=== PATIENT | male | born 1950 | race Caucasian/White ===

== ENCOUNTER → 2020-10-11 13:59 | Outpatient (BNVA) | payer MEDICARE, OTHER, SELFPAY | PROVIDERS: PCP Internal Medicine; Referring Provider Internal Medicine; Visit Provider Orthopaedic Surgery | DX: M70.62 Trochanteric bursitis, left hip (principal); M76.32 Iliotibial band syndrome, left leg; Z96.653 Presence of artificial knee joint, bilateral | CPT/HCPCS: 20610; 99202; J1100 ==

== ENCOUNTER → 2021-07-04 13:04 | Outpatient (BNVA) | payer MEDICARE, OTHER, SELFPAY | PROVIDERS: PCP Internal Medicine; Visit Provider Orthopaedic Surgery | DX: M70.62 Trochanteric bursitis, left hip (principal); M76.32 Iliotibial band syndrome, left leg | CPT/HCPCS: 99212; J1100 ==

== ENCOUNTER 2021-08-19 15:00 | Outpatient (RCR) | payer MEDICARE, OTHER, SELFPAY ==
--- NOTE | 2021-07-22 15:48 | MHC.PT.EP ---
[facility] [place] Office [place] Office [place] Office [address] Ronni Kraft [address] [phone] F: [phone] F: [phone] F: [phone] F: [phone] Physical Therapy Plan of Care Date of Evaluation: Date of Surgery: N/A Diagnosis: trochanteric bursitis, left hip iliotibial band syndrome Assessment: pt presents to physical therapy with pain, decreased range of motion, decreased strength, impaired functional mobility, impaired postural awareness, and gait deviations. pt is a good candidate for skilled PT due to age, potential remediation of impairments, typical disease/condition progression and prognosis, comorbidities, and motivation. pt would benefit from tailored strengthening and stretching exercise program, functional training, gait training, postural re-training, neuromuscular re-education, modalities as needed for pain, equipment safety demonstration. Frequency and Duration: The patient will be seen 1x/wk for 4 wks Short Term Goals: pt will be I w/ HEP to promote self-management of condition. pt will improve L hip IR by 1 MMT grade to remediate gait impairments on even ground. Furnace Roaster Goals: pt will report a statistically significant improvement in self-reported outcome measure, LEFI, to promote return to PLOF. pt will report <2/10 L hip pain w/ ambulation of >2500' to promote pain-free return to community ambulation. Treatment Plan: Modalities to reduce pain, spasms and effusion. Manual therapy to restore motion and function. Therapeutic exercise to improve strength and flexibility. Neuromuscular re-education for posture and balance. Therapeutic activities to return to functional activities of daily living. Electronically signed by: Darlene Seay PT, DPT Please sign and return to therapist. Thank you for your referral.
--- NOTE | 2021-09-06 12:00 | MHC.PT.DC ---
[facility] [place] Office [place] Office [place] Office [address] Ronni Kraft 140 [facility] [phone] F: [phone] F: [phone] F: [phone] F: [phone] Physical Therapy Discharge Report Diagnosis: trochanteric bursitis, left hip iliotibial band syndrome Date of Surgery: N/A Date of Evaluation: 07/22/21 Date of Discharge: 09/06/21 Treatments to Date: 4 Cancellations to Date: 1 No Shows to Date: 0 Discharge Status: Independent with HEP Visit Non-compliance Discharge Summary: The patient was referred for his hip; however, he was not interested in any intervention for his hip at this time. We reviewed his home exercise program from a previous bout of physical therapy he received at the end 2019 for the same problem. He was introduced to some lower chain exercises to reduce his genu valgus and over-pronatory tendencies. He would often show up late and would leave early. He is discharged from this physical therapy plan of care. Electronically signed by: Darlene Seay PT, DPT Please sign and return to therapist. Thank you for your referral.
== END 2021-09-06 12:01 | disposition home or self-care (01) ==
LOC: HO.PT 15:00
PROVIDERS: PCP Internal Medicine; Visit Provider Orthopaedic Surgery
DX: M70.62 Trochanteric bursitis, left hip (principal); M76.32 Iliotibial band syndrome, left leg
CPT/HCPCS: 97110; 97161

== ENCOUNTER 2022-03-31 11:58 | Outpatient (REF) | payer MEDICARE, OTHER, SELFPAY ==
--- NOTE | ~2022-03-31 | XR_ITS ---
EXAMINATION: XR PELVIS CLINICAL INFORMATION: Hip pain COMPARISON: None TECHNIQUE: AP view of the pelvis. FINDINGS: There is mild reduction in bilateral hip joint space without bony erosive changes. No visible acute fracture, dislocation or subluxation seen. SI joints are symmetric and normal. The pelvic bones are normal. XR/XR pelvis 1-2V IMPRESSION: Mild reduction in bilateral hip joint space likely early DJD. No acute fracture or dislocation seen.
== END 2022-03-31 11:59 | disposition home or self-care (01) ==
LOC: HO.HOSX 11:58
PROVIDERS: PCP Internal Medicine; Visit Provider Orthopaedic Surgery
DX: M70.62 Trochanteric bursitis, left hip (principal); R10.32 Left lower quadrant pain
CPT/HCPCS: 20610; 72170; 99212; J1100

== ENCOUNTER → 2022-04-15 09:51 | Outpatient (BNVA) | payer MEDICARE, OTHER, SELFPAY | PROVIDERS: PCP Internal Medicine; Visit Provider Surgery | DX: R10.32 Left lower quadrant pain (principal); R26.89 Other abnormalities of gait and mobility; R12 Heartburn; I10 Essential (primary) hypertension; M19.079 Primary osteoarthritis, unspecified ankle and foot; M70.62 Trochanteric bursitis, left hip | CPT/HCPCS: 99202 ==

== ENCOUNTER 2022-06-16 13:36 | Outpatient (REF) | payer MEDICARE, OTHER, SELFPAY ==
--- NOTE | ~2022-06-16 | CT_ITS ---
EXAMINATION: CT ABDOMEN AND PELVIS WITHOUT CONTRAST CLINICAL INFORMATION: Left lower quadrant pain COMPARISON: None TECHNIQUE: Multidetector volumetric imaging was performed from the superior aspect of the liver through the pubic symphysis. Sagittal and coronal reformatted images were obtained on the technologist's workstation. This CT examination was performed using dose optimization techniques as appropriate, variously including the following: *Automated exposure control *Adjustment of mA and/or kV according to patient size (this includes techniques or standardized protocols for targeted exams where dose is matched to indication/reason for exam; i.e. extremities or head) *Use of iterative reconstruction technique DLP: 486 mGy-cm FINDINGS: LUNG BASES: The visualized lung bases are unremarkable. LIVER, GALLBLADDER, AND BILIARY TREE: The liver is normal in size, shape, and attenuation. No focal hepatic lesion or biliary ductal dilatation is present. The gallbladder has been surgically removed. PANCREAS: Unremarkable. SPLEEN: Unremarkable. ADRENAL GLANDS: Unremarkable. KIDNEYS AND URETERS: The kidneys are normal in size, shape, and attenuation. No hydronephrosis, hydroureter, or calculi seen. No perinephric stranding. There is a 2.1 cm peripelvic cyst lower pole right kidney BLADDER: Unremarkable. GASTROINTESTINAL TRACT: There is diffuse colonic diverticulosis with mild mural thickening but no pericolic fat stranding seen. Oral contrast opacified small bowel loops are normal caliber. The appendix is normal caliber. The stomach is nondistended and appears unremarkable. ABDOMINAL WALL: There is a 2.4 cm supraumbilical midline anterior abdominal wall hernia containing fat. LYMPH NODES: Normal. VASCULAR: Unremarkable. PELVIC VISCERA: There is no free air or free fluid. The prostate gland is normal size. Small shotty lymph nodes seen in the inguinal region. OSSEOUS STRUCTURES: There are degenerative disc changes with vacuum disc phenomena and spondylosis throughout lumbar spine. There is grade 1 anterolisthesis L4-L5 and grade 1 retrolisthesis and L3 over L4 and L2 over L3 vertebra. No aggressive lytic or sclerotic process seen. There is bilateral L4-L5 and left L3-L4 facet joint arthropathy and hypertrophy. CT/CT abdomen pelvis wo con IMPRESSION: Colonic diverticulosis most prominent in the sigmoid colon with mild mural thickening. However there is no pericolic fat stranding to suspect any diverticulitis. Supraumbilical midline abdominal wall hernia containing fat. Previous cholecystectomy. Right parapelvic cyst. Fleischner guidelines were followed.
[2022-06-16] MEDS: Barium Sulfate Oral (Mocha) 450 ML ORAL.SUSP 900 ML PO (16:43)
== END 2022-06-16 13:37 | disposition home or self-care (01) ==
LOC: HO.CT 13:36
PROVIDERS: PCP Internal Medicine; Visit Provider Surgery
DX: M70.62 Trochanteric bursitis, left hip (principal); R10.32 Left lower quadrant pain
CPT/HCPCS: 74176

== ENCOUNTER → 2022-06-19 13:35 | Outpatient (BNVA) | payer MEDICARE, OTHER, SELFPAY | PROVIDERS: PCP Internal Medicine; Visit Provider Surgery | DX: R10.32 Left lower quadrant pain (principal); M70.62 Trochanteric bursitis, left hip; M76.32 Iliotibial band syndrome, left leg; I10 Essential (primary) hypertension; Z90.49 Acquired absence of other specified parts of digestive tract | CPT/HCPCS: 99212 ==

== ENCOUNTER → 2022-07-14 12:05 | Outpatient (BNVA) | payer MEDICARE, OTHER, SELFPAY | PROVIDERS: PCP Internal Medicine; Visit Provider Orthopaedic Surgery | DX: M70.62 Trochanteric bursitis, left hip (principal); M76.32 Iliotibial band syndrome, left leg; R26.9 Unspecified abnormalities of gait and mobility | CPT/HCPCS: 99212; J1100 ==

== ENCOUNTER → 2023-04-16 11:28 | Outpatient (BNVA) | payer MEDICARE, OTHER, SELFPAY | PROVIDERS: PCP Internal Medicine; Visit Provider Orthopaedic Surgery | DX: M70.62 Trochanteric bursitis, left hip (principal); R26.9 Unspecified abnormalities of gait and mobility; Z96.652 Presence of left artificial knee joint | CPT/HCPCS: 20610; 99212; J1100 ==

== ENCOUNTER → 2023-05-25 12:12 | Outpatient (BNVA) | payer MEDICARE, OTHER, SELFPAY | PROVIDERS: PCP Internal Medicine; Visit Provider Orthopaedic Surgery | DX: M70.62 Trochanteric bursitis, left hip (principal); R26.9 Unspecified abnormalities of gait and mobility | CPT/HCPCS: 20610; 99212; J1100 ==

== ENCOUNTER 2024-04-11 10:28 | Outpatient (AMB) | payer MEDICARE, OTHER, SELFPAY ==
--- NOTE | 2024-04-11 10:40 | A.OFFVIS_ITS ---
Intake Visit Reasons: OV-LT hip injection-last injection 05/25/23 Intake Note: Porfirio is a 73 year old male who presents today for a follow up of his left hip greater trochanteric bursitis, last injected 05/25/23. Patient reports that the last injection was helpful and he would like to repeat injection today. He also complains of right shoulder pain that onset about two weeks ago with no injury. Limited and painful ROM. Allergies No Known Allergies [No Known Allergies*] Allergy (Verified 05/25/23 12:15) Seasonale Allergy (Unknown, Uncoded 04/16/23 12:13) unknown HPI HPI OV-LT hip injection-last injection 05/25/23: Details: Porfirio is a 73 year old male who presents today for a follow up of his left hip greater trochanteric bursitis, last injected 05/25/23. Patient reports that the last injection was helpful and he would like to repeat injection today. He also complains of right shoulder pain that onset about two weeks ago with no injury. Limited and painful ROM. [facility] Medical History Greater trochanteric bursitis of left hip Heart burn High cholesterol Hypertension Iliotibial band syndrome affecting left lower leg Primary localized osteoarthritis of left knee Surgical History H/O medial meniscus repair of left knee History of total knee arthroplasty Social History Current occupational status: employed and retired Current occupation: - Right Handed Physical Exam Const General: no acute distress and alert Orientation/consciousness: patient oriented x3 Neuro General: patient oriented x3 Extrem Other: Left hip: TTP greater trochanter Psych Appearance: grossly normal Affect: normal affect Attitude: cooperative Office Procedures Joint Injection/Drain Joint Injection/Drain Details: Injected 1 mL of Decadron and 3 mL 1% lidocaine and 3 mL of 0.25% Marcaine. Site was prepped using aseptic technique. Patient tolerated the procedure well. 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 Her has mild hip OA. I injected his left GT today, which he tolerated well. He can follow up prn (2) Gait disturbance: Code(s): R26.9 - Unspecified abnormalities of gait and mobility Plan Coding Level of Care Code Est Pt Level 3 (81610) Diagnoses Greater trochanteric bursitis of left hip M70.62 Gait disturbance R26.9 CPT Codes Coding - 06728 Large joint: 30110 - Large joint ([id number])
== END 2024-04-11 11:08 | disposition home or self-care (01) ==
PROVIDERS: PCP Internal Medicine; Visit Provider Orthopaedic Surgery
DX: M70.62 Trochanteric bursitis, left hip (principal); R26.9 Unspecified abnormalities of gait and mobility
CPT/HCPCS: 20610; 99213

== ENCOUNTER → 2024-04-11 10:28 | Outpatient (BNVA) | payer MEDICARE, OTHER, SELFPAY | PROVIDERS: PCP Internal Medicine; Visit Provider Orthopaedic Surgery | DX: M70.62 Trochanteric bursitis, left hip (principal); R26.9 Unspecified abnormalities of gait and mobility | CPT/HCPCS: 20610; 99212; J0665; J1100 ==

== ENCOUNTER 2024-05-13 07:40 | Outpatient (REF) | payer MEDICARE, OTHER, SELFPAY ==
--- NOTE | ~2024-05-13 | XR_ITS ---
EXAMINATION: XR SHOULDER, RIGHT CLINICAL INFORMATION: Pain in the shoulder COMPARISON: None available. TECHNIQUE: 3 views of the right shoulder. FINDINGS: Glenohumeral joint: Severe joint space narrowing with [id number] appearance. Marginal osteophytes present. Mild arthrosis of the acromioclavicular joint. Surrounding bone and soft tissues unremarkable. XR/XR shoulder RT min 2V IMPRESSION: Severe osteoarthritis of the glenohumeral joint. Mild arthrosis of the acromioclavicular joint.
== END 2024-05-13 07:41 | disposition home or self-care (01) ==
LOC: HO.HOSX 07:40
PROVIDERS: Visit Provider Orthopaedic Surgery
DX: M19.011 Primary osteoarthritis, right shoulder (principal)
CPT/HCPCS: 73030; 99212

== ENCOUNTER 2024-05-13 10:12 | Outpatient (AMB) | payer MEDICARE, OTHER, SELFPAY ==
--- NOTE | 2024-05-13 10:33 | MHC.OFFVIS ---
Intake Visit Reasons: Newprob-right shoulder pain Intake Note: Porfirio is a 74 year old male who presents today for a new problem visit with complaints of right shoulder pain. Patient reports that his right shoulder has been many years now, he reports injury many years ago. No hx of treatment. He feels pain with lateral reaching and above the head. He declines numbness and tingling. Allergies No Known Allergies [No Known Allergies*] Allergy (Verified 05/25/23 12:15) Seasonale Allergy (Unknown, Uncoded 04/16/23 12:13) unknown HPI HPI Newprob-right shoulder pain: Details: Porfirio is a 74 year old male who presents today for a new problem visit with complaints of right shoulder pain. Patient reports that his right shoulder has been many years now, he reports injury many years ago. No hx of treatment. He feels pain with lateral reaching and above the head. He declines numbness and tingling. PFSH Medical History Greater trochanteric bursitis of left hip Heart burn High cholesterol Hypertension Iliotibial band syndrome affecting left lower leg Primary localized osteoarthritis of left knee Surgical History H/O medial meniscus repair of left knee History of total knee arthroplasty Social History Current occupational status: employed and retired Current occupation: - Right Handed Physical Exam Const General: cooperative, healthy appearing, no acute distress and well groomed Orientation/consciousness: oriented to person and oriented to place HEENT Head: Yes normal to inspection, Yes normocephalic and Yes atraumatic Eyes General: appearance normal, both eyes and all related structures Alignment and Position: alignment normal Conjunctivae: conjunctivae normal EOM: EOMs intact bilaterally Neck Neck: Yes normal visual inspection and Yes trachea midline Resp Other: No rerpiratory distress Effort & Inspection: normal respiratory effort and able to speak in complete sentences GI Other: No abdominal distension Back/Spine/Pelvis Cervical Spine: normal cervical lordosis and cervical ROM normal Skin General skin exam: no rashes or lesions noted Neuro General: oriented to person, oriented to place and gait normal Extrem Other: Shoulder: 25/90/120/S1 Negative EC Negative H/N Results Reviewed Results Reviewed: I personally reviewed relevant radiographs. Moderate to severe right shoudler OA Assessment & Plan Assessment & Plan (1) Primary osteoarthritis, right shoulder: Code(s): M19.011 - Primary osteoarthritis, right shoulder Category: Medical Plan: Ran has right shoulder osteoarthritis. We discussed treatment options. He has not severely limited at this time and I recommend avoidance of exacerbating activity and I wrote him a prescription for physical therapy. He can see me back as needed. Plan I will send an order for physical therapy Orders: Orders XR shoulder RT min 2V 05/13/24 M25.519 - Pain in unspecified shoulder PT Evaluation and Treatment Today M75.51 - Bursitis of right shoulder Coding Level of Care Code Est Pt Level 3 (87822) Diagnoses Primary osteoarthritis, right shoulder M19.011
== END 2024-05-13 11:04 | disposition home or self-care (01) ==
PROVIDERS: PCP Internal Medicine; Visit Provider Orthopaedic Surgery
DX: M19.011 Primary osteoarthritis, right shoulder (principal)
CPT/HCPCS: 99213

== ENCOUNTER 2024-08-11 08:23 | Outpatient (REF) | payer MEDICARE, OTHER, SELFPAY ==
--- NOTE | ~2024-08-11 | XR_ITS ---
EXAMINATION: XR KNEE, BILATERAL CLINICAL INFORMATION: M25.562 - Pain in left knee COMPARISON: Radiographs 11/11/2019 TECHNIQUE: AP standing view of both knees. Lateral and sunrise views of the left knee FINDINGS: There is a minimally displaced fracture involving the medial aspect of the medial femoral condyle of the left knee. No joint effusion. The total knee arthroplasty components are unremarkable. Normal appearance of the right knee total arthroplasty on the AP view. XR/XR knee RT 1V IMPRESSION: There is a minimally displaced fracture involving the medial aspect of the medial femoral condyle of the left knee. Electronically signed by: Raymond Gonzalez MD 08/17/2024 11:03 AM EDT
--- NOTE | ~2024-08-11 | XR_ITS ---
EXAMINATION: XR KNEE, BILATERAL CLINICAL INFORMATION: M25.562 - Pain in left knee COMPARISON: Radiographs 11/11/2019 TECHNIQUE: AP standing view of both knees. Lateral and sunrise views of the left knee FINDINGS: There is a minimally displaced fracture involving the medial aspect of the medial femoral condyle of the left knee. No joint effusion. The total knee arthroplasty components are unremarkable. Normal appearance of the right knee total arthroplasty on the AP view. XR/XR knee LT 3V IMPRESSION: There is a minimally displaced fracture involving the medial aspect of the medial femoral condyle of the left knee. Electronically signed by: Raymond Gonzalez MD 08/17/2024 11:03 AM EDT
== END 2024-08-11 08:24 | disposition home or self-care (01) ==
LOC: HO.XRAY 08:23
PROVIDERS: PCP Internal Medicine; Visit Provider Orthopaedic Surgery
DX: M96.662 Fracture of femur following insertion of orthopedic implant, joint prosthesis, or bone plate, left leg (principal); M25.561 Pain in right knee
CPT/HCPCS: 73560; 73562; 99212

== ENCOUNTER 2024-08-11 08:23 | Outpatient (AMB) | payer MEDICARE, OTHER, SELFPAY ==
--- NOTE | 2024-08-11 08:25 | MHC.OFFVIS ---
Intake Visit Reasons: New Prob- RT TKA 09/28/2019 s/p fall Intake Note: Ran is a 74 year old male who presents today for a new problem visit with complaints of right knee pain s/p Fall on 08/06/24, He reports that a group of dogs had knocked him over, he doesnt remember how exactly he fell. Hx of Right TKA 09/28/2019. He was seen at [facility] where he was told he has a fracture. Patient reports that he has mild pain with medial and lateral movements. He has been wearing his knee immobilizer at all times. Allergies No Known Allergies [No Known Allergies*] Allergy (Verified 08/11/24 08:30) Seasonale Allergy (Unknown, Uncoded 08/11/24 08:30) unknown HPI HPI New Prob- RT TKA 09/28/2019 s/p fall: Details: Ran is a 74 year old male who presents today for a new problem visit with complaints of right knee pain s/p Fall on 08/06/24, He reports that a group of dogs had knocked him over, he doesnt remember how exactly he fell. Hx of Right TKA 09/28/2019. He was seen at [facility] where he was told he has a fracture. Patient reports that he has mild pain with medial and lateral movements. He has been wearing his knee immobilizer at all times. [facility] Medical History Greater trochanteric bursitis of left hip Heart burn High cholesterol Hypertension Iliotibial band syndrome affecting left lower leg Primary localized osteoarthritis of left knee Surgical History H/O medial meniscus repair of left knee History of total knee arthroplasty Social History Current occupational status: employed and retired Current occupation: - Right Handed Results Reviewed Results Reviewed: There is a medial condyle fracture that is nondisplaced. Assessment & Plan Assessment & Plan (1) Fracture of left femur following insertion of orthopedic implant: Code(s): M96.662 - Fracture of femur following insertion of orthopedic implant, joint prosthesis, or bone plate, left leg Category: Medical Plan: This is a 74-year-old with a nondisplaced fracture of the left femoral condyle adjacent to the prosthesis. This does not appear to be affecting prosthetic stability. I recommend walking with a walker and he was given a knee brace. Care should be taken to avoid hyperflexion with way. I discussed this with him. I will see him back in 3 months' time. He will contact me if he has worsening pain. Orders: Orders XR knee LT 3V Today M25.562 - Pain in left knee Coding Level of Care Code Est Pt Level 4 (80252) Diagnoses Fracture of left femur following insertion of orthopedic implant M96.662
== END 2024-08-11 12:30 | disposition home or self-care (01) ==
PROVIDERS: PCP Internal Medicine; Visit Provider Orthopaedic Surgery
DX: M96.662 Fracture of femur following insertion of orthopedic implant, joint prosthesis, or bone plate, left leg (principal)
CPT/HCPCS: 99213

== ENCOUNTER 2024-09-20 14:23 | Outpatient (AMB) | payer MEDICARE, OTHER, SELFPAY ==
--- NOTE | 2024-09-20 15:01 | A.OFFVIS_ITS ---
Vital Signs 09/20/24 15:06 Height 5 ft 10 in Weight 188 lb 7.924 oz BMI 27.0 BP 122/70 Blood Pressure Location Lt brachial Position Sitting Pulse 65 Pulse Source Pulse Oximeter Pulse Oximetry (%) 95 Oxygen Delivery Method Room Air Intake Visit Reasons: RA Intake Note: Patient presents for RA. Allergies No Known Allergies [No Known Allergies*] Allergy (Verified 09/20/24 15:04) Seasonale Allergy (Unknown, Uncoded 08/11/24 08:30) unknown Medication List - Last Reconciled 09/20/24 by Zack Howard MD acetaminophen-codeine 300-30 mg 1 tab PO BID atorvastatin 20 mg PO DAILY finasteride 1 mg PO DAILY ibuprofen 800 mg PO TID PRN lisinopril 10 mg PO DAILY omeprazole 20 mg PO DAILY zolpidem 10 mg PO BEDTIME PRN HPI Comments Details: This is a 74-year-old male with known osteoarthritis who presents for evaluation of multiple joint pain. Patient has had both knees replaced in the past, recently he was attacked by dogs and he twisted his left knee causing a fracture. He was wearing a brace and it is improving already. He states that he has pain in both shoulder much more significant on the right side as well as left hip pain due to trochanteric bursitis. He has received injections in his left hip bursa and right shoulder in the past which gave him 3-4 months relief. He also has pain in both ankles. He has received injection his ankles in the past which provided some relief. He takes Tylenol with codeine about 3 days a week. He is unaware of any family history of an autoimmune rheumatic disease. He states that he gets a flaky rash on his eyebrows, he was prescribed a cream with rapid resolution by journalism instructor in the past. He denies any swollen joints. He has morning stiffness of his hands lasting 5 minutes at the most. He was bit by a pit bull 5 days ago when he was breaking up a fight between a [place] and a pitbull [facility] Medical History Greater trochanteric bursitis of left hip Iliotibial band syndrome affecting left lower leg Hypertension High cholesterol Heart burn Primary localized osteoarthritis of left knee Surgical History H/O medial meniscus repair of left knee History of total knee arthroplasty Social History Current occupational status: employed and retired Current occupation: - Right Handed Review of Systems [facility] Reports deformity, Reports arthralgias and Denies joint swelling Physical Exam Vital Signs: Last Vital Signs Pulse 65 09/20/24 15:06 BP 122/70 09/20/24 15:06 Pulse Ox 95 09/20/24 15:06 Oxygen Delivery Method Room Air 09/20/24 15:06 BMI result Body Mass Index 27.0 Const General: cooperative, healthy appearing and comfortable Nutritional Appearance: overweight Orientation/consciousness: patient oriented x3 Limitations: ambulation with cane HEENT Head: Yes normocephalic and Yes atraumatic Mouth: moist mucous membranes Resp Effort & Inspection: normal respiratory effort and able to speak in complete sentences Auscultation: clear to auscultation bilaterally Skin General skin exam: no rashes or lesions noted Neuro General: patient oriented x3 Extrem Other: Osteoarthritic changes of both hands with prominent squaring of the 1st CMC joint particularly right hand Right 1st CMC joint tenderness No swollen joints Prominent Heberden's nodes both hands mildly tender No wrist pain with flexion-extension bilaterally No elbow pain with flexion-extension bilaterally Mildly reduced right shoulder abduction Normal nailfold capillaroscopy Assessment & Plan Assessment & Plan (1) Generalized osteoarthritis: Code(s): M15.9 - Polyosteoarthritis, unspecified Category: Medical Plan: This is a 74-year-old male who presents for evaluation of multiple joint pain. Upon evaluation patient has osteoarthritis affecting multiple joints including the base of his thumbs, his fingers, right shoulder. Upon evaluation I do not see any evidence of an autoimmune rheumatic disease. Discussed nature of osteoarthritis and its management. Discussed symptoms and signs that are suggestive of an autoimmune rheumatic disease. Advised patient to follow-up as needed (2) Dog bite of dorsum of hand: Code(s): S61.459A - Open bite of unspecified hand, initial encounter; W54.0XXA - Bitten by dog, initial encounter Category: Medical Plan: Bite looks infected. Likely needs antibiotics. Patient will make an appointment with his PCP tomorrow Plan I spent 45 minutes reviewing patient's chart, evaluating patient, counseling patient and documenting in the chart Coding Level of Care Code New Pt Level 4 (35321) Diagnoses Generalized osteoarthritis M15.9 Dog bite of dorsum of hand S61.459A; W54.0XXA
[2024-09-20 15:06] VITALS: BP 122/70; PULSE 65; O2SAT 95; BMI 27.0
== END 2024-09-20 16:24 | disposition home or self-care (01) ==
PROVIDERS: PCP Internal Medicine; Visit Provider Student in an Organized Health Care Education/Training Program
DX: M15.9 Polyosteoarthritis, unspecified (principal); S61.459A Open bite of unspecified hand, initial encounter; W54.0XXA Bitten by dog, initial encounter
CPT/HCPCS: 99204

== ENCOUNTER → 2024-09-20 14:23 | Outpatient (BNVA) | payer MEDICARE, OTHER, SELFPAY | PROVIDERS: PCP Internal Medicine; Visit Provider Student in an Organized Health Care Education/Training Program | DX: M15.9 Polyosteoarthritis, unspecified (principal); S61.459A Open bite of unspecified hand, initial encounter; W54.0XXA Bitten by dog, initial encounter; Y93.9 Activity, unspecified; Y92.9 Unspecified place or not applicable; Y99.9 Unspecified external cause status | CPT/HCPCS: 99202 ==

== ENCOUNTER 2024-09-22 10:20 | Outpatient (REF) | payer MEDICARE, OTHER, SELFPAY ==
--- NOTE | ~2024-09-22 | XR_ITS ---
EXAMINATION: XR KNEE, LEFT CLINICAL INFORMATION: Pain COMPARISON: X-ray dated August 11, 2024. TECHNIQUE: 3 views of the left knee. FINDINGS: Metallic prosthesis with a femoral and tibial components well seated in the osseous structures. No acute cortical disruption or malalignment. No gross loosening. No lytic or blastic lesions. Vascular calcifications. XR/XR knee LT 3V IMPRESSION: Status post total left knee arthroplasty prosthesis without acute fracture or dislocation. Atherosclerosis disease, peripheral. Electronically signed by: Pablo Fox MD 09/22/2024 11:19 AM EDT
== END 2024-09-22 10:21 | disposition home or self-care (01) ==
LOC: HO.HOSX 10:20
PROVIDERS: Visit Provider Orthopaedic Surgery
DX: M70.62 Trochanteric bursitis, left hip (principal); M75.51 Bursitis of right shoulder; Z96.652 Presence of left artificial knee joint; Z91.81 History of falling
CPT/HCPCS: 20610; 73562; 99212; J0665; J1100; J2003

== ENCOUNTER 2024-09-22 10:29 | Outpatient (AMB) | payer MEDICARE, OTHER, SELFPAY ==
--- NOTE | 2024-09-22 10:39 | MHC.OFFVIS ---
Vital Signs 09/22/24 10:49 Height 5 ft 10 in Weight 188 lb BMI 27.0 Intake Visit Reasons: OV- Left TKA 09/28/2019 - s/p Fall Intake Note: Ran is a 74 year old male who presents today for a follow up of his right knee s/p fall on 08/06/24. He is s/p Right TKA 09/28/2019. It was recommended that he us a walker and ambulate with Playmaker brace on. Patient reports that he is doing better with no concerns at this point.] He is requesting an injection in the left hip - Last injection 04/11/24 He explains that he was bit by a dog on the right hand and is being treated with Abx for this Allergies No Known Allergies [No Known Allergies*] Allergy (Verified 09/20/24 15:04) Seasonale Allergy (Unknown, Uncoded 08/11/24 08:30) unknown HPI HPI OV- Left TKA 09/28/2019 - s/p Fall: Details: Ran is a 74 year old male who presents today for a follow up of his right knee s/p fall on 08/06/24. He is s/p Right TKA 09/28/2019. It was recommended that he us a walker and ambulate with Playmaker brace on. 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 Walking comfortably. Tenderness to palpation left greater trochanter Positive Flowers and Sheela right shoulder Office Procedures Joint Injection/Aspiration Joint Injection/Aspiration Details: Injected 1 mL of Decadron and 3 mL 1% lidocaine and 3 mL of 0.25% Marcaine. Site was prepped using aseptic technique. Patient tolerated the procedure well. Primary Site: other (left greater trochanter) Approach Used: posterolateral Coding 49083 - Large joint Procedure code (CPT) selection complete Results Reviewed Results Reviewed: I personally reviewed relevant radiographs. Small lateral femoral condyle nondisplaced fracture adjacent to the prosthetic. Appears in stable condition. Healing appears present. Assessment & Plan Assessment & Plan (1) Fracture of left femur following insertion of orthopedic implant: Code(s): M96.662 - Fracture of femur following insertion of orthopedic implant, joint prosthesis, or bone plate, left leg Category: Medical Plan: Doing well. No additional intervention warranted (2) Greater trochanteric bursitis of left hip: Code(s): M70.62 - Trochanteric bursitis, left hip Category: Medical Plan: Injected left hip greater trochanteric bursa (3) Bursitis of right shoulder: Code(s): M75.51 - Bursitis of right shoulder Category: Medical Plan: Order for PT written Orders: Orders XR knee LT 3V Today M25.562 - Pain in left knee Coding Level of Care Code Est Pt Level 4 (51281) Diagnoses Fracture of left femur following insertion of orthopedic implant M96.662 Greater trochanteric bursitis of left hip M70.62 Bursitis of right shoulder M75.51 CPT Codes Coding - Large joint: 44657 - Large joint ([id number])
[2024-09-22 10:49] VITALS: BMI 27.0
== END 2024-09-22 11:06 | disposition home or self-care (01) ==
PROVIDERS: PCP Internal Medicine; Visit Provider Orthopaedic Surgery
DX: M96.662 Fracture of femur following insertion of orthopedic implant, joint prosthesis, or bone plate, left leg (principal); Z96.652 Presence of left artificial knee joint; M70.62 Trochanteric bursitis, left hip; M75.51 Bursitis of right shoulder
CPT/HCPCS: 20610; 99214

== ENCOUNTER → 2024-09-22 10:30 | Outpatient (BNV) | payer MEDICARE, OTHER, SELFPAY | PROVIDERS: Visit Provider Radiology Diagnostic Radiology | DX: M25.562 Pain in left knee (principal) | CPT/HCPCS: 73562 ==

== ENCOUNTER 2025-05-19 10:49 | Outpatient (AMB) | payer MEDICARE, OTHER, SELFPAY ==
--- OUTSIDE RECORDS SUMMARY | 2025-05-19 11:15 | XMS_ITS | Continuity of Care Document ---
Author Organization [facility], Main Office Address [address] [facility] [address] [place] [address] Care Team Providers Care Automation Application Engineer Name Role Phone SANCHEZ BOTELLO Primary Care Provider ESTHER HUBER General Surgeon [facility] Sports Medicine Coordinator [phone] [facility] Healthcare Or Medical/Nutritionis t SUHA MANCERA Orthopedic Surgeon [phone] AIXA CROWELL Neuropsychologist TIN TANG Urologist GLENN ALVAREZ Orthopedic Surgeon NEHEMIAH ALEX Edi Architect FATOU AC Service Secretary Assessment No assessment recorded. Plan of Treatment Reminders Order Date Submit Date Provider Last Modified By Organization Details Last Modified Time Details Appointments [id number] 2024 01:00P M Luis Matias PA-C Not available Not available Not available Lab None recorde d. Referral None recorde d. Procedures None recorde d. Surgeries None recorde d. Imaging None recorde d. Medication Orders lorazep am 0.5 mg tablet 2024 025 SHANTE [id number], [address] [place], [address], 05/17/2025 13:26:09 atorvas tatin 20 mg tablet 2024 025 [email or web address] [id number], [address] [place], [address], 05/17/2025 13:23:14 lisinop ril 20 mg tablet 2024 025 adore [id number], [address] [facility], [place], [address], 05/17/2025 13:24:42 Patient TargetsNo targets recorded. Patient Instructions Encounter Date Encounter Id Patient Instructions Last Modified By Organization Details Last Modified Time 05/17/2025 [id number] high blood pressure: care instructions [email or web address] Not available 05/17/2025 13:15:13 learning about high blood pressure [email or web address] Not available 05/17/2025 13:15:13 Reason for Referral None Reported. Problems Name Problem SNOMED Code Status Onset Date Resolution Date Notes Provider Name and Address Organization Details Recorded Time Acute sinusiti s 37222289 Active Not Available [facility] 3 10:04:24 Hammer toe 387398813 Active Not Available [facility] 3 10:04:24 Otitis media 61498331 Completed 201107/10/2014 RECORDED 07/12/20 12 8:35AM BY ROXANNA QUEZADA ON/BHAVYA Botello MD [address] [address], [place], [address] , [facility] 6 13:54:28 Acute upper respirat ory infectio n 45023334 Completed 201107/10/2014 RECORDED 07/12/20 12 8:35AM BY ROXANNA QUEZADA ON/BHAVYA Botello MD [address] [address], [place], [address] , [facility] 6 13:54:28 Pain of joint 47020628 Completed 201107/10/2014 RECORDED 07/12/20 12 8:35AM BY ROXANNA QUEZADA ON/BHAVYA Botello MD [address] [address], [place], [address] , [facility] 6 13:54:28 Screenin g for malignan t neoplasm of colon Completed 201107/10/2014 RECORDED 07/12/20 12 8:35AM BY ROXANNA QUEZADA ON/BHAVYA Botello MD [address] [facility] [address], [place], [address] , [facility] 6 13:54:28 Degenera tion of interver tebral disc 76362506 Completed 201107/10/2014 RECORDED 07/12/20 12 8:35AM BY ROXANNA QUEZADA ON/BHAVYA Botello MD [address] [facility] [address], [place], [address] , [facility] 6 13:54:28 Impotenc e of organic origin Completed 201207/10/2014 RECORDED 12/13/19 13 2:37PM BY ROXANNA QUEZADA ON/BHAVYA Botello MD [address] [facility] [address], [place], [address] , [facility] 6 13:54:28 Malaise and fatigue [id number] Completed 201207/10/2014 IMPRESSI ON: THIS IS PROBABLY FROM LIFESTYL E ISSUES. 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 HE DOES NOT SLEEP WELL. HE IS ON MEDS FOR THIS AND SEES A SLEEP SPECIALI ST. WE WILL CHECK LABS TO R/O A MEDICAL ETIOLOGY FOR HIS FATIGUE. ; RECORDED 06/15/20 13 9:47AM BY ROXANNA QUEZADA/BHAVYA Botello MD [address] [facility] [address], [place], [address] , [facility] 6 13:54:28 Headache [id number] Completed 201207/10/2014 RECORDED 12/11/19 13 12:07PM BY ROXANNA QUEZADA/BHAVYA Botello MD [address] [facility] [address], [place], [address] , [facility] 6 13:54:28 Impacted patrizia 70712118 Completed 200707/10/2014 RECORDED 07/17/20 08 1:35PM BY ROXANNA JENSEN/BHAVYA Botello MD [address] [facility] [address], [place], [address] , [facility] 6 13:54:28 Current tear of medial cartilag e AND/OR meniscus of knee Completed 201107/10/2014 RECORDED 07/12/20 12 8:35AM BY ROXANNA QUEZADA/BHAVYA Botello MD [address] [facility] [address], [place], [address] , [facility] 6 13:54:28 Renewal of prescrip tion Completed 201207/10/2014 RECORDED 03/08/20 13 10:16AM BY ROXANNA CHUA/BHAVYA Botello MD [address] [facility] [address], [place], [address] , [facility] 6 13:54:28 Administ ration of bacteria l and viral vaccine Completed 200807/10/2014 RECORDED 09/03/20 09 1:02PM BY [place] CARVALHO, OFFICE VISIT Sanchez Botello MD [address] [facility] [address], [place], [address] , [facility] 6 13:54:28 Plantar fascial fibromat osis 35624535 Completed 201107/10/2014 RECORDED 07/12/20 12 8:34AM BY ROXANNA QUEZADA/BHAVYA Botello MD [address] [facility] [address], [place], [address] , [facility] 6 13:54:28 Pre-surg nano evaluati on Completed 201107/10/2014 RECORDED 07/12/20 12 8:35AM BY ROXANNA QUEZADA ON/ADDEN DUM Sanchez Botello MD [address] [facility] [address], [place], [address] , [facility] 6 13:54:28 Chronic sinusiti s 62998940 Completed 201207/10/2014 IMPRESSI ON: ENCOURAG E REST AND HYDRATIO N. RTC IF PERSISTE NT OR WORSENIN G SYMPTOMS .; RECORDED 06/15/20 13 9:47AM BY ROXANNA QUEZADA ON/ADDEN NO Botello MD [address] [address], [place], [address] , [facility] 6 13:54:28 Abnormal involunt albino movement 212482185 Completed 201207/10/2014 IMPRESSI ON: NO FURTHER W/U AT THIS TIME. HE WILL CALL IF IT RETURNS. ; RECORDED 12/13/19 13 2:37PM BY ROXANNA QUEZADA ON/ADD NO Botello MD [address] [address], [place], [address] , [facility] 6 13:54:28 Adult health examinat ion Completed 08/01/2015 Sanchez Botello MD [address] [address], [place], [address] , [facility] 6 13:54:28 Insomnia 053642577 Active Not Available [facility] 3 10:04:24 Hypercho lesterol emia 35886944 Completed 03/19/2017 Sanchez Botello MD [address] [address], [place], [address] , [facility] 7 16:27:48 Ureteric stone 71894915 Active Followed by Dr Tang Not Available [facility] 3 10:04:24 Fatigue 08859220 Active Not Available [facility] 3 10:04:24 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 Not Available [facility] 3 10:04:24 Osteoart hritis of knee 704277478 Active 2017 Right; followed by ortho. Pursuing surgery with Dr Alvarez TKA 09/28/19 . Knocked over by dogs on 08/06/24 reinjuri ng his right knee. Sanchez Botello MD [address], [place], [address] , [facility] 4 11:32:37 Iliotibi al band friction syndrome 959869204 Active 2021 Hip/groi n Not Available [facility] 3 10:04:24 Hernia of anterior abdomina l wall 356465160 Active 2021 Consider ing elective surgery. Not Available [facility] 3 10:04:24 Cough 84114240 Active 2021 Not Available [facility] 3 10:04:24 Hyperten zahira monitori ng status 275162616 Active 2022 dis-enro lled Not Available [facility] 3 10:04:24 Anxiety 94857064 Active 2022 Shay Elam [facility] [address] [address], [place], [address] , [facility] 3 12:18:42 Pain of right shoulder region Active 2023 Seen by ortho QUAN Botello MD [address] [address], [place], [address] , [facility] 4 10:54:07 Peripros thetic fracture 429563747 Active 2023 Knee after a fall; followed by dia Botello MD [address] [facility] [address], [place], [address] , [facility] 4 11:35:35 Otitis media 20378692 Completed 201106/13/2014 RECORDED 07/12/20 12 8:35AM BY ROXANNA QUEZADA ON/BHAVYA Botello MD [address] [address], [place], [address] , [facility] 6 13:54:28 Acute upper respirat ory infectio n 39812858 Completed 201106/13/2014 RECORDED 07/12/20 12 8:35AM BY ROXANNA QUEZADA ON/BHAVYA Botello MD [address] [facility] [address], [place], [address] , [facility] 6 13:54:28 Allergic rhinitis 59715084 Active Not Available [facility] 3 10:04:24 Pain of joint 57659945 Completed 201106/13/2014 RECORDED 07/12/20 12 8:35AM BY ROXANNA QUEZADA ON/BHAVYA Botello MD [address] [address], [place], [address] , [facility] 6 13:54:28 Elevated blood-pr essure reading without diagnosi s of hyperten zahira 729454281 Completed 03/21/2019 Sanchez Botello MD [address] [facility] [address], [place], [address] , [facility] 9 14:18:24 Screenin g for malignan t neoplasm of colon Completed 201106/13/2014 RECORDED 07/12/20 12 8:35AM BY ROXANNA QUEZADA ON/ADDEN DUM Sanchez Botello MD [address] [facility] [address], [place], [address] , [facility] 6 13:54:28 Constipa tion 72385566 Active Not Available [facility] 3 10:04:24 Degenera tion of interver tebral disc 38125883 Completed 201106/13/2014 RECORDED 07/12/20 12 8:35AM BY ROXANNA QUEZADA ON/ADDEN DUM Sanchez Botello MD [address] [facility] [address], [place], [address] , [facility] 6 13:54:28 Elevated blood-pr essure reading without diagnosi s of hyperten zahira 824833537 Completed 201106/13/2014 RECORDED 07/12/20 12 8:35AM BY ROXANNA QUEZADA ON/ADDEN NO Botello MD [address] [facility] [address], [place], [address] , [facility] 9 14:18:24 Impotenc e of organic origin Completed 201206/13/2014 RECORDED 12/13/19 13 2:37PM BY ROXANNA QUEZADA ON/ADDEN NO Botello MD [address] [facility] [address], [place], [address] , [facility] 6 13:54:28 Malaise and fatigue 269866763 Completed 201206/13/2014 IMPRESSI ON: THIS IS PROBABLY FROM LIFESTYL E ISSUES. 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 HE DOES NOT SLEEP WELL. HE IS ON MEDS FOR THIS AND SEES A SLEEP SPECIALI ST. WE WILL CHECK LABS TO R/O A MEDICAL ETIOLOGY FOR HIS FATIGUE. ; RECORDED 06/15/20 13 9:47AM BY ROXANNA QUEZADA ON/BHAVYA Botello MD [address] [facility] [address], [place], [address] , [facility] 6 13:54:28 Gastroes ophageal reflux disease 377670887 Active Not Available [facility] 3 10:04:24 Headache 62399460 Completed 201206/13/2014 RECORDED 12/11/19 13 12:07PM BY ROXANNA QUEZADA ON/BHAVYA Botello MD [address] [facility] [address], [place], [address] , [facility] 6 13:54:28 Impacted cerumen 56691252 Completed 200706/13/2014 RECORDED 07/17/20 08 1:35PM BY ROXANNA JENSEN / Sanchez Botello MD [address] [facility] [address], [place], [address] , [facility] 6 13:54:28 Persiste nt insomnia 730950497 Completed 03/21/2019 Sanchez Botello MD [address] [facility] [address], [place], [address] , [facility] 9 14:18:17 Irritabl e bowel syndrome 43389578 Active Not Available [facility] 3 10:04:24 Current tear of medial cartilag e AND/OR meniscus of knee Completed 201106/13/2014 RECORDED 07/12/20 12 8:35AM BY ROXANNA QUEZADA ON/BHAVYA Botello MD [address] [facility] [address], [place], [address] , [facility] 6 13:54:28 Renewal of prescrip tion Completed 201206/13/2014 RECORDED 03/08/20 13 10:16AM BY ROXANNA CHUA ON/BHAVYA Botello MD [address] [facility] [address], [place], [address] , [facility] 6 13:54:28 Administ ration of bacteria l and viral vaccine Completed 200806/13/2014 RECORDED 09/03/20 09 1:02PM BY [place] CARVALHO, OFFICE VISIT Sanchez Botello MD [address] [facility] [address], [place], [address] , [facility] 6 13:54:28 Overweig ht 670867856 Active Not Available [facility] 3 10:04:24 Plantar fascial fibromat osis 01670806 Completed 201106/13/2014 RECORDED 07/12/20 12 8:34AM BY ROXANNA QUEZADA ON/BHAVYA Botello MD [address] [facility] [address], [place], [address] , [facility] 6 13:54:28 Pre-surg nano evaluati on Completed 201106/13/2014 RECORDED 07/12/20 12 8:35AM BY ROXANNA QUEZADA ON/BHAVYA Botello MD [address] [facility] [address], [place], [address] , [facility] 6 13:54:28 Chronic sinusiti s 64042542 Completed 201206/13/2014 IMPRESSI ON: ENCOURAG E REST AND HYDRATIO N. RTC IF PERSISTE NT OR WORSENIN G SYMPTOMS .; RECORDED 06/15/20 13 9:47AM BY ROXANNA QUEZADA ON/BHAVYA Botello MD [address] [facility] [address], [place], [address] , [facility] 6 13:54:28 Abnormal involunt albino movement 068760301 Completed 201206/13/2014 IMPRESSI ON: NO FURTHER W/U AT THIS TIME. HE WILL CALL IF IT RETURNS. ; RECORDED 12/13/19 13 2:37PM BY ROXANNA QUEZADA ON/BHAVYA Botello MD [address] [facility] [address], [place], [address] , [facility] 6 13:54:28 Problem Notes None recorded. Procedures Surgical History Date Name Laterality Status Provider Name and Address Organization Details Recorded Time 04/28/20 24 Colonoscopy completed Sammie Kee [facility] 04/28/2024 12:51:28 04/11/20 24 injection of hip joint completed Ange Covarrubias [facility] 04/20/2024 11:17:30 05/16/20 20 Six-Item Cognitive Test completed Kevin Hardwick [facility] 05/16/2020 14:28:55 09/28/20 19 Total knee arthroplasty completed Sara Marie [facility] 11/04/2019 15:52:57 03/21/20 19 Mini-Cog Test completed Kevin Hardwick [facility] 03/21/2019 14:02:40 11/04/20 18 Drain/inj joint/bursa w/o us completed Ange Covarrubias [facility] 11/09/2018 10:59:16 04/30/20 18 cataract surgery completed Kevin Hardwick [facility] 03/21/2019 13:59:45 01/08/20 18 Cholecystectomy completed Ange Covarrubias [facility] 02/04/2018 15:03:25 03/19/20 17 Fall Risk Assessment completed Kevin Hardwick [facility] 03/19/2017 15:52:37 03/19/20 17 Mini-Cog Test completed Kevin Hardwick [facility] 03/19/2017 15:52:45 10/30/20 14 Orthopedic Surgery completed Sanchez Botello MD [address], [address], [facility] 06/13/2015 13:14:00 08/30/20 14 Orthopedic Surgery completed Sanchez Botello MD [address], [address], [facility] 06/13/2015 13:14:00 06/30/20 14 Orthopedic Surgery completed Sanchez Botello MD [address], [address], [facility] 06/13/2015 13:14:00 Imaging Results None recorded. Procedure Notes None recorded. Medical Equipment None Reported. Allergies No known drug allergies Medications Name Sig Start Date Stop Date Status Note LastModified by Organization Details LastModified Time carisopro dol 350 mg tablet active Not Available Not Available No t Available amoxicill in 500 mg capsule TAKE 4 CAPSULES 1 HOUR PRIOR TO APPT active Not Available Not Available No t Available Flomax 0.4 mg capsule Take 1 capsule every day by oral route. active Not Available Not Available No t Available azithromy matilda 250 mg capsule DAILY 01/15 completed RECORDED 01/15/20 11 10:41AM BY PAUL BANGURA, MEDICATI ON AUTO-YOLANDA CTIVATIO N;TAKE 2 PILLS BY MOUTH ON DAY 1, THEN 1 PILL DAILY ON DAYS 2-5. Not Available Not Available Not Available promethaz ine-DM 6.25 mg-15 mg/5 mL oral syrup TAKE 5 ML EVERY 4-6 HOURS BY MOUTH NEEDED FOR 5 DAYS. 03/12 completed Not Available Not Available Not Available acetamino phen 325 mg tablet TAKE 2 TABLETS BY MOUTH EVERY 6 HOURS 06/10 completed Not Available Not Available Not Available doxycycli ne hyclate 100 mg capsule TAKE 2 CAPSUKES BY MOUTH TWO TIMES A DAY 04/16 completed Not Available Not Available Not Available atorvasta tin 20 mg tablet TAKE 1 TABLET BY MOUTH EVERY DAY 2024 active Not Available Not Available Not Avai lable Saline Mist 0.65 % nasal spray aerosol TAKE 1 SPRAY EVERY DAY BY NASAL ROUTE IN THE MORNING active Not Available Not Available No t Available azithromy matilda 250 mg tablet TAKE 2 TABLETS BY MOUTH TODAY, THEN TAKE 1 TABLET DAILY FOR 4 DAYS DIRECTED 05/17 completed Not Available Not Available Not Available aspirin 325 mg tablet TAKE 1 TABLET BY MOUTH TWICE A DAY WITH FOOD 04/23 completed Not Available Not Available Not Available ibuprofen 800 mg tablet TAKE 1 TABLET BY MOUTH 3 TIMES A DAY NEEDED FOR PAIN 03/12 completed Not Available Not Available Not Available hydrocodo ne 5 mg-acetam inophen 325 mg tablet TAKE 1 TABLET BY MOUTH EVERY 6 HOURS NEEDED 03/12 completed Not Available Not Available Not Available meloxicam 15 mg tablet 04/23 completed Not Available Not Available Not Available lisinopri l 20 mg tablet Take 1 tablet every day by oral route for 90 days. 2024 active Not Available Not Available Not Avai lable ondansetr on HCl 4 mg tablet 05/16 completed Not Available Not Available Not Available Viagra 50 mg tablet TAKE 1 TABLET BY MOUTH DAILY NEEDED FOR ERECTILE DYSFUNCT ION 09/21 completed Not Available Not Available Not Available prednison e 5 mg tablet 07/23 completed Not Available Not Available Not Available clindamyc in HCl 150 mg capsule active Not Available Not Available Not Available promethaz ine 6.25 mg-codein e 10 mg/5 mL syrup 07/23 completed Not Available Not Available Not Available penicilli n V potassium 500 mg tablet TAKE 1 TABLET BY MOUTH EVERY 8 HOURS 09/24 completed Not Available Not Available Not Available vancomyci n 5 gram intraveno us solution 04/16 completed Not Available Not Available Not Available acetamino phen 300 mg-codein e 30 mg tablet TAKE 1 TABLET BY MOUTH TWICE A DAY active Not Available Not Available No t Available fexofenad ine 180 mg tablet TAKE 1 TABLET BY MOUTH EVERY DAY active Not Available Not Available No t Available doxepin 10 mg capsule Take 1 capsule every day by oral route for 30 days. 05/16 completed Not Available Not Available Not Available sulfameth oxazole 800 mg-trimet hoprim 160 mg tablet TAKE 2 TABLETS BY MOUTH TWICE A DAY FOR 10 DAYS 04/16 completed Not Available Not Available Not Available sildenafi l 100 mg tablet TAKE ONE TABLET BY MOUTH EVERY DAY NEEDED active Not Available Not Available No t Available amoxicill in 500 mg tablet 09/06 completed Not Available Not Available Not Available ketorolac 0.5 % eye drops 03/21 completed Not Available Not Available Not Available oxycodone -acetamin ophen 5 mg-325 mg tablet 04/06 completed Not Available Not Available Not Available lorazepam 0.5 mg tablet 1 tablet 1 hour before flying as needed 2024 active Not Available Not Available Not Avai lable dextroamp hetamine- amphetami ne ER 20 mg 24hr capsule,e xtend release Take 1 capsule every day by oral route for 30 days. active Not Available Not Available No t Available benzonata te 100 mg capsule TAKE 1 CAPSULE 3 TIMES A DAY BY ORAL ROUTE NEEDED FOR 5 DAYS, FOR COUGH.. 04/04 completed Not Available Not Available Not Available deslorata dine 5 mg tablet QD 01/15 completed RECORDED 01/15/20 11 2:06PM BY ROXANNA NEELY ON/ADDEN DUM; Not Available Not Available Not Available flunisoli de 25 mcg (0.025 %) nasal spray 03/19 completed Not Available Not Available Not Available pantopraz ole 40 mg tablet,de layed release DAILY 07/06 completed RECORDED 07/06/20 13 8:57AM BY SANCHEZ SANDRA MD, ROXANNA ON/ADDEN DUM; Not Available Not Available Not Available lisinopri l 10 mg tablet TAKE 1 TABLET BY MOUTH EVERY DAY 04/23 completed Not Available Not Available Not Available lansopraz ole 30 mg capsule,d elayed release TAKE ONE CAPSULE BY MOUTH EVERY DAY 03/19 completed Not Available Not Available Not Available indometha matilda 50 mg capsule TAKE 1 CAPSULE BY MOUTH 3 TIMES A DAY WITH MEALS 04/23 completed Not Available Not Available Not Available gabapenti n 300 mg capsule TAKE 2 CAPSULES BY MOUTH AT BEDTIME active Not Available Not Available No t Available omeprazol e 20 mg capsule,d elayed release TAKE 1 CAPSULE BY MOUTH EVERY DAY active Not Available Not Available No t Available hydrocort isone 2.5 % topical cream APPLY TO AFFECTED AREA AROUND EYES TWICE A DAY FOR 1-2 WEEKS NEEDED active Not Available Not Available No t Available amoxicill in 250 mg capsule Take 4 capsules as needed by oral route. active before dental work Not Available Not Available Not Available codeine 10 mg-guaife nesin 100 mg/5 mL oral liquid TAKE 10 MILLILIT ERS BY MOUTH EVERY 4 HOURS NEEDED 05/17 completed Not Available Not Available Not Available lorazepam 1 mg tablet TAKE 1 TABLET EVERY DAY BY ORAL ROUTE NEEDED FOR 30 DAYS, FOR ANXIETY. active Not Available Not Available No t Available azelastin e 137 mcg (0.1 %) nasal spray SPRAY 2 SPRAYS TWICE A DAY BY INTRANAS AL ROUTE active Not Available Not Available No t Available ibuprofen 600 mg tablet po prn 07/31 completed Not Available Not Available Not Available zolpidem 10 mg tablet TAKE 1 TABLET EVERY DAY BY ORAL ROUTE AT BEDTIME FOR 90 DAYS, FOR INSOMNIA . active Not Available Not Available No t Available ondansetr on 4 mg disintegr ating tablet 04/06 completed Not Available Not Available Not Available fluticaso ne propionat e 50 mcg/actua tion nasal spray,[place] [employer] SPRAY 2 SPRAYS INTO EACH NOSTRIL DAILY DIRECTED active Not Available Not Available No t Available dicyclomi ne 10 mg capsule TAKE 1 CAPSULE BY MOUTH THREE TIMES A DAY FOR 30 DAYS 06/10 completed Not Available Not Available Not Available naproxen 500 mg tablet TAKE 1 TABLET BY MOUTH TWICE A DAY NEEDED 09/24 completed Not Available Not Available Not Available finasteri de 1 mg tablet TAKE 1 TABLET BY MOUTH EVERY DAY active Not Available Not Available No t Available amoxicill in 875 mg-potass ium clavulana te 125 mg tablet TAKE 1 TABLET BY MOUTH EVERY 12 HOURS DIRECTED FOR 5 DAYS active Not Available Not Available No t Available ciclopiro x 0.77 % topical gel APPLY TO AFFECTED AREA EXTERNAL LY TWICE A DAY TO EFFECTED NAILS 30 DAYS active Not Available Not Available No t Available oxycodone 5 mg tablet 05/16 completed Not Available Not Available Not Available methylphe nidate ER 27 mg tablet,ex tended release 24 hr Take 1 tablet every day by oral route for 30 days. active Not Available Not Available No t Available albuterol (refill) 90 mcg/actua tion aerosol inhaler EVERY 4 HOURS, NEEDED 02/09 completed RECORDED 02/12/20 11 4:31PM BY PAUL BANGURA, MEDICATI ON AUTO-YOLANDA CTIVATIO N; Not Available Not Available Not Available Strattera 40 mg capsule Take 1 capsule every day by oral route. active Not Available Not Available No t Available codeine-g uaifenesi n oral syrup Q 4 HOURS PRN 05/24 completed RECORDED 01/31/20 11 10:07AM BY PAUL BANGURA, MEDICATI ON AUTO-YOLANDA CTIVATIO N;MAY CAUSE DROWSINE SS. Not Available Not Available Not Available Senna Plus 8.6 mg-50 mg tablet TAKE 1 TABLET BY MOUTH EVERY EVENING NEEDED 04/23 completed Not Available Not Available Not Available eszopiclo ne 3 mg tablet AT BEDTIME 12/09 completed RECORDED 12/09/19 10 3:23PM BY SANCHEZ SANDRA MD, ANNOTATI ON/ DUM; Not Available Not Available Not Available eszopiclo ne 2 mg tablet Take 1 tablet every day by oral route as needed. 07/23 completed Not Available Not Available Not Available chlorhexi dine gluconate 0.12 % mouthwash 04/06 completed Not Available Not Available Not Available Flonase QD 01/15 completed RECORDED 01/15/20 11 2:06PM BY ROXANNA NEELY ON/ADD DUM; Not Available Not Available Not Available omeprazol e DAILY 2010 active RECORDED 02/18/20 12 3:48PM BY RAFAELA SINGH MA, OFFICE VISIT; Not Available Not Available Not Available blood pressure monitor DAILY MONITORI NG OF BP FOR HTN 05/07 completed RECORDED 05/09/20 13 3:32PM BY NIMCO CHUA ON AUTO-YOLANDA CTIVATIO N; Not Available Not Available Not Available Zostavax (PF) 19,400 unit/0.65 mL subcutane ous suspensio n ONE TIME DOSE active Not Available Not Available No t Available hydrocodo ne 10 mg-ibupro fen 200 mg tablet TAKE 1 TABLET BY MOUTH TWICE A DAY NEEDED FOR PAIN active Not Available Not Available No t Available diclofena c 1 % topical gel apply to foot prn active Not Available Not Available No t Available azelastin e 205.5 mcg (0.15 %) nasal spray INSTILL 2 SPRAYS BY NASAL ROUTE ONCE DAILY DIRECTED active Not Available Not Available No t Available dicyclomi ne 10 mg/5 mL oral solution Take 5 mg 4 times a day by oral route for 30 days, for IBS. 2023 active Not Available Not Available Not Avai lable Flonase Sensimist 27.5 mcg/actua tion nasal spray,[place] pension Take 1 spray every day by nasal route at bedtime for 30 days. 2022 active NEEDED Not Available Not Available Not Available Plenvu 140 gram-9 gram-5.2 gram powder packs MIX AND DRINK NEEDED 09/14 completed Not Available Not Available Not Available Fluad Quad 4765-6505 (65yr up)(PF) 60 mcg (15 mcg x 4)/0.5mL IM syringe PHARMACY ADMINIST ERED 10/17 completed Not Available Not Available Not Available Quviviq 25 mg tablet TAKE 1 TABLET EVERY DAY BY ORAL ROUTE AT BEDTIME FOR 5 DAYS. active Not Available Not Available No t Available Vitals Date Recorded Systolic blood pressure Diastolic blood pressure Provider Name and Address Organization Details Last Updated DateTime 05/17/2025 128 mm[Hg] 68 mm[Hg] Sanchez Botello MD [address], [address], [facility] 05/17/2025 13:24:30 Date Recorded Body height Body mass index (BMI) Body weight Heart rate Oxygen saturation Oxygen saturation in Arterial blood by Pulse oximetry Body temperature Provider Name and Address Organization Details Last Updated DateTime 06/18/202 5 178.44 cm 25.6 kg/m2 49997.6 3 g 75 /min 98 % 98 % 97.8 [degF] Eboni boo MA [facility] 5 12:53:49 Date Recorded Heart rate Heart rate Systolic blood pressure Diastolic blood pressure Systolic blood pressure Diastolic blood pressure Provider Name and Address Organization Details Last Updated DateTime 5 86 /min 85 /min 113 mm[Hg] 68 mm[Hg] 100 mm[Hg] 70 mm[Hg] Not Available [facility] 5 20:54:36 Social History Question Answer Notes LastModified by Organizat ion Details LastModified Time Tobacco Smoking Status Never Smoker Not Available [facility] 10/02/2020 03:36:38 Do You Have An Advance Directive? No [email or web address] Information not available 09/24/2022 Animal Exposure? No Information not available 09/24/2022 Do You Wear A Helmet When Biking? Yes [email or web address] Information not available 09/24/2022 Is Blood Transfusion Acceptable In An Emergency? Yes [id number] Information not available 10/02/2020 What Is Your Level Of Caffeine Consumption? Moderate 1 Large Cups Coffee Daily Information not available 09/10/2023 How Much Tobacco Do You Chew? None [id number] Information not available 10/02/2020 What Type Of Diet Are You Following? REGULAR [id number] Information not available 10/02/2020 Education Post Graduate [email or web address] Information not available 09/24/2022 Have There Been Any Changes To Your Family Or Social Situation? No [email or web address] Information not available 09/24/2022 How Many Days In The Past Year Have You Had A Heavy Drinking Consumption (4+ Female, 5+ Male)? 0 [email or web address] Information not available 08/21/2014 Are There Any Guns Present In Your Home? Yes [email or web address] Information not available 09/24/2022 Legally Blind In One Or Both Eyes? No [email or web address] Information not available 09/24/2022 Live Alone Or With Others? With Others [email or web address] Information not available 09/24/2022 Do You Take Precautions To Prevent Distracted Driving? Yes [email or web address] Information not available 12/18/2015 How Often Do You Need To Have Someone Help You When You Read Instructions, Pamphlets, Or Other Written Material From Your Doctor Or Pharmacy? Never [email or web address] Information not available 12/18/2015 Have You Served In The ? No [email or web address] Information not available 03/19/2017 Have You Or Anyone In Your Household Had Any Of The Following Symptoms In The Last 14 Days: Sore Throat, Cough, Chills, Body Aches For Unknown Reasons, Shortness Of Breath For Unknown Reasons, Loss Of Smell, Loss Of Taste, Fever At Or Greater Than 100 Degrees Fahrenheit? No [email or web address] Information not available 10/17/2020 Are You Or Anyone In Your Household A Health Care Provider Or Emergency Responder? No [email or web address] Information not available 10/17/2020 To The Best Of Your Knowledge Have You Been In Close Proximity To Any Individual Who Tested Positive For COVID-19? No [email or web address] Information not available 10/17/2020 *AWV ONLY* Are You Presently Prescribed Opioid Medication By PCP Or Specialist? If YES -Provider Assess The Benefit For Other, Non-opioid Pain Therapies Instead, Even If The Patient Does Not Have OUD But Is Possibly At Risk. Yes Tylenol With Codeine [email or web address] Information not available 07/30/2021 Have You Recently Traveled To A COVID-19 High Risk Area Or Gathering In The Last 10 Days? No [email or web address] Information not available 07/30/2021 Marital Status [email or web address] Informatio n not available 09/24/2022 What Was The Date Of Your Most Recent Tobacco Screening? 09/14/2024 [email or web address] Information not available 09/14/2024 Total Number Of Stairs In Home 2 [email or web address] Information not available 09/24/2022 How Many Children Do You Have? 2 Sons; 1 Is A Upsetter Setter Up In [place] [id number] Information not available 10/02/2020 Do You Use Protection During Sex? No [id number] Information not available 10/02/2020 Difficulty Reading? No [email or web address] Information not available 09/24/2022 What Is Your Relationship Status? [email or web address] Information not available 09/24/2022 Seat Belts Used Routinely Yes Information not available 09/24/2022 Are You Sexually Active? Yes [id number] Information not available 10/02/2020 Are You Passively Exposed To Smoke? No [email or web address] Information not available 12/18/2015 How Much Tobacco Do You Smoke? No [id number] Information not available 10/02/2020 What Types Of Sporting Activities Do You Participate In? None Information not available 09/24/2022 Do You Use Sunscreen Routinely? No [id number] Information not available 10/02/2020 Do You Have Difficulty Walking Or Climbing Stairs? Yes [email or web address] Information not available 09/24/2022 Sex: Unknown Functional Status Question Answer Note LastModified by Organizat ion Details LastModified Time Do you use any illicit or recreational drugs? No [email or web address] Information not available 09/24/2022 Do you or have you ever used any other forms of tobacco or nicotine? No Information not available 09/18/2023 What is your level of alcohol consumption? Occasional Information not available 09/10/2023 Do you or have you ever used smokeless tobacco? Never used smokeless tobacco [email or web address] Information not available 10/17/2020 Are you currently employed? No Retired [id number] Information not available 10/02/2020 Difficulty driving at night? Yes [email or web address] Information not available 09/24/2022 Are you able to walk? [email or web address] Information not available 09/24/2022 Are you able to care for yourself? 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 No [email or web address] Information not available 09/24/2022 Do you or have you ever used e-cigarettes or vape? Never used electronic cigarettes [email or web address] Information not available 09/24/2022 What is your exercise level? Occasional walking 5x week [id number] Information not available 10/02/2020 Mental Status Question Answer Note LastModified by Organization D etails LastModified Time Do you have difficulty concentrating, remembering or making decisions? Yes [email or web address] Information no t available 09/24/2022 Family History Relationship Description Onset Age of this Age Resolved Age Notes LastModified by Organization Details LastModified Time Mother Dementia 60 87 adore Not availa ble 03/19/2017 16:15:45 Father Cerebral hemorrhage 32 Not available 08/31 08:36:15 Father Rheumatic fever [email or web address] Not available 09/24 08:36:15 Medical History Condition Response Gout N Other Y Kidney Stones N Blood Diseases N Hyperthyroidism N Breast Cancer N COPD N Depression N Lung Disease N Hypothyroidism N Defects or Inherited Disease N Anesthesia Complications N Headaches/Migraines N Anxiety Disorder N Varicose Veins N Obesity N Vision or Eye Problems N Arthritis N Head Injury/Concussion N Polyps N Infertility N Congenital Anomalies N Acid Reflux (GERD) Y Cancer N Stroke N ADHD Y Endometriosis N High Cholesterol N Liver Disease N Fibromyalgia N Kidney Disease N Heart Problems Y Ear or Hearing Problems N Hospitalizations N Thyroid Problems N GI Problems N Acne N Eating Disorder N Skin Problems N Anemia N Constipation Y Bladder Problems N Mental Illness N Diabetes N Ovarian Cancer N Blood Transfusions N Seizures/Epilepsy N Tuberculosis N AIDS/HIV N Congestive Heart Failure (CHF) N Eczema N Abuse/Domestic Violence N Diverticulitis N Asthma N Allergies Y Reflux/GERD N Hepatitis N Pulmonary Embolism N Hypertension N Chicken Pox N Autism Spectrum Disorder (ASD) N Osteoporosis N Immunizations Vaccine Type Date Status Note Provider Nam e and Address Organization Details Recorded Time Influenza, split virus, trivalent, PF 4 completed Sammie ramirez [facility] 05/14/2023 13:21:26 Influenza, high-dose, trivalent, PF 8 completed [facility] 13:21:26 Influenza, split virus, quadrivalent, preservative 0 completed Sammie ramirez [facility] 05/14/2023 13:21:25 COVID-19, mRNA, LNP-S, PF, 30 mcg/0.3 mL dose 1 completed Sammie ramirez [facility] 05/14/2023 13:21:26 pneumococcal polysaccharide PPV23 9 completed Sammie Kee null, [facility] 05/14/2023 13:21:26 Influenza, split virus, quadrivalent, PF 9 completed Sammie Kee null, [facility] 05/14/2023 13:21:26 Influenza, adjuvanted, quadrivalent, PF 0 completed Sammie Kee null, [facility] 05/14/2023 13:21:26 Influenza, split virus, trivalent, PF 4 completed Sammie Kee null, [facility] 05/14/2023 13:21:26 COVID-19, mRNA, LNP-S, PF, 30 mcg/0.3 mL dose, valerio-sucrose 2 completed Sammie Kee null, [facility] 05/14/2023 13:21:26 Influenza, split virus, quadrivalent, PF 6 completed Not Available [facility] 12/17/2019 02:22:02 zoster recombinant 3 completed Eliza Ambrocio MA null, [facility] 06/10/2023 13:51:07 Influenza, split virus, quadrivalent, PF 6 completed Not Available [facility] 12/17/2019 02:22:04 pneumococcal polysaccharide PPV23 7 completed Not Available [facility] 12/17/2019 02:21:26 Pneumococcal conjugate PCV 13 9 completed Not Available [facility] 12/17/2019 02:21:41 Td (adult), 2 Lf tetanus toxoid, preservative free, adsorbed 0 completed Kevin Hardwick null, [facility] 05/16/2020 15:21:54 Tdap 9 completed Sammie Kee null, [facility] 05/14/2023 13:21:26 Influenza, high-dose, quadrivalent, PF 3 completed Shay Elam, [facility] [address] [place] [address], [id number], [facility] 09/10/2023 12:17:38 Influenza, high-dose, trivalent, PF 4 completed Sanchez Botello MD [address] [facility] [address], [place], [address], [facility] 09/15/2024 12:32:47 Past Encounters Encounter ID Performer Location Encounter Start Date Encounter Closed Date Diagnosis/Indication Diagnosis SNOMED-CT Code Diagnosis ICD10 Code Diagnosis Note [id number] Sanchez Botello MD Main Office [address] [facility] [address] [place] [address] 05/10/2025 14:19:57 05/10/2025 15:07:16 Acute sinusitis 00663349 J01.90 Acute cough 0164197517 28711510 R05.1 [id number] Sanchez Botello MD Main Office [address] [address] 05/17/2025 12:04:37 05/17/2025 13:16:56 Essential hypertension 78950946 I10 Good control. Continue current mgmt. Mixed hyperlipidemia 267 601901 E78.2 On a statin. Check fasting lipid level. Fear of flying 186246694 F40.243 Health Concerns Section Related Observation LastModified by Organization Detai ls LastModified Time None Recorded Concern Status LastModified by Organization Details LastModified Time None Recorded Payers Encounter Date Sequence Insurance Name Policy Number Policy Swan Covered Member ID Swan Member ID Guarantor Name 05/17/2025 1 MEDICARE B-AR: [email or web address] Ran May [id number] Ran May 05/17/2025 2 [facility] (MEDICARE SUPPLEMENT) Ran May [id number] Ran May Notes Date Note Type Note Provider Name and Address Organization Details Recorded Time 5 text/html HyperlipidemiaReported bypatient.Type of hyperlipidemia:hypercholest erolemia Duration:chronic Control:usually well controlled Current Therapy:currently taking: (atorvastatin); last cholesterol level: (151); last LDL level: (92); last triglyceride level: (110); last HDL level: (39) Compliance:compliant; exercises Complications:no coronary artery disease; no peripheral artery disease; no cardiovascular disease Risk Factors:hypertension;low HDL levelHypertension F/UReported bypatient.Associated Symptoms:no dizziness; no lightheadedness; no chest pain; no shortness of breath; no palpitations; no edema; no calf pain with exertion Lifestyle:regular exercise; limiting/avoiding salt Medications:taking medications as directed; no side effects from medication Sanchez Botello MD [address], [address], [facility] 05/17/2025 13:28:11
[2025-05-19 11:16] VITALS: BMI 27.0
--- NOTE | 2025-05-19 11:16 | A.OFFVIS_ITS ---
Vital Signs 05/19/25 11:16 Height 5 ft 10 in Weight 188 lb BMI 27.0 Intake Visit Reasons: OV-L hip pain Intake Note: John is a 75 year old male who presents today for a follow up visit of his Left Hip pain. Hx of Left GT Bursitis Injection 03/31/22. Patients today with complaints of left hip pain in the lateral aspect of the hip with occasional groin radiation. He reports that this last injection was very helpful and he would like to repeat injection today. Allergies No Known Allergies (No Known Allergies*) Allergy (Verified 09/20/24 15:04) Seasonale Allergy (Unknown, Uncoded 08/11/24 08:30) unknown HPI HPI OV-L hip pain: Details: John is a 75 year old male who presents today for a follow up visit of his Left Hip pain. Hx of Left GT Bursitis Injection 03/31/22. Patients today with complaints of left hip pain in the lateral aspect of the hip with occasional groin radiation. He reports that this last injection was very helpful and he would like to repeat injection today. He also has right shoulder osteoarthritis. He has been working hard with physical therapy. He was hoping to get some relief from the pain so he could continue working out. [facility] Medical History (Updated 09/22/24 @ 11:10 by Sal Alvarez MD) Other infective bursitis, right shoulder Greater trochanteric bursitis of left hip Iliotibial band syndrome affecting left lower leg Hypertension High cholesterol Heart burn Primary localized osteoarthritis of left knee Surgical History H/O medial meniscus repair of left knee History of total knee arthroplasty Social History Current occupational status: employed and retired Current occupation: - Right Handed Physical Exam Vital Signs: BMI result Body Mass Index 27.0 Extrem Other: Good range of motion left hip and negative impingement test. Tenderness to palpation over the greater trochanter. Right shoulder notable for crepitus and pain with external rotation greater than 20 degrees. Motion is limited by pain in 90 degrees of abduction. Office Procedures Joint Inj/Aspir; Non-Pain Clin Joint Injection/Drain Details: Injected 1 mL of Decadron and 3 mL 1% lidocaine and 3 mL of 0.25% Marcaine. Site was prepped using aseptic technique. Patient tolerated the procedure well. Shoulders, Hips, Knees, Shoulder Injection Large joint 22884: Right Shoulder Hip Injection Large Joint 81071: Left Hip Coding Procedure code (CPT) selection complete Results Reviewed Results Reviewed: I personally reviewed relevant radiographs. Severe right shoulder osteoarthritis Assessment & Plan Assessment & Plan (1) Greater trochanteric bursitis of left hip: Code(s): M70.62 - Trochanteric bursitis, left hip Category: Medical Plan: Chronic greater trochanteric bursitis versus his ITB. I injected his left greater trochanter. (2) Primary osteoarthritis, right shoulder: Code(s): M19.011 - Primary osteoarthritis, right shoulder Category: Medical Plan: Osteoarthritis right shoulder. I injected the glenohumeral joint. Orders: Orders XR shoulder RT min 2V Today M25.519 - Pain in unspecified shoulder Coding Level of Care Code Est Pt Level 3 (77488) Complex EM visit Add On G2211 Diagnoses Greater trochanteric bursitis of left hip M70.62 Primary osteoarthritis, right shoulder M19.011 CPT Codes Shoulders, Hips, Knees, - Shoulder Injection Large joint 50684: Right Shoulder ([id number]) Shoulders, Hips, Knees, - Hip Injection Large Joint 47354: Left Hip ([id number])
== END 2025-05-19 12:28 | disposition home or self-care (01) ==
LOC: HO.HOS 10:50
PROVIDERS: Visit Provider Orthopaedic Surgery
DX: M70.62 Trochanteric bursitis, left hip (principal); M19.011 Primary osteoarthritis, right shoulder
CPT/HCPCS: 20610; 99213

== ENCOUNTER 2025-05-19 10:49 | Outpatient (REF) | payer MEDICARE, OTHER, SELFPAY ==
--- NOTE | ~2025-05-19 | XR_ITS ---
CLINICAL HISTORY: M25.519 - Pain in unspecified shoulder 3 view right shoulder Comparison: None provided Findings: There is moderately severe joint space narrowing of the right glenohumeral joint. Moderate degenerative change of the acromioclavicular joint. No fracture or malalignment. Impression: Advanced degenerative changes. No acute process. This document has been electronically signed by: Jamari Hickman MD on 05/19/2025 16:22:36
== END 2025-05-19 10:50 | disposition home or self-care (01) ==
LOC: HO.HOSX 10:49
PROVIDERS: Visit Provider Orthopaedic Surgery
DX: M24.111 Other articular cartilage disorders, right shoulder (principal)
CPT/HCPCS: 20610; 73030; 99212; J0665; J1100; J2003

== ENCOUNTER → 2025-05-19 12:07 | Outpatient (BNV) | payer MEDICARE, OTHER, SELFPAY | PROVIDERS: Visit Provider Radiology Vascular & Interventional Radiology | DX: M25.811 Other specified joint disorders, right shoulder (principal) | CPT/HCPCS: 73030 ==